=== PATIENT | male | born 1955 | race Caucasian/White ===

== ENCOUNTER 2021-09-14 21:17 | Emergency (ER) | payer OTHER ==
[~2021-09-14] VITALS: Ht 177.8 cm; Wt 83.9 kg
[~2021-09-14 21:17] MED LIST: AMLO10 PO; ASPI325 PO; CLOP75 PO; ISOMON30 PO; METO25 PO; PRAV20 PO
== END 2021-09-14 23:40 | disposition home or self-care (01) ==
LOC: ER 21:17
DX: U07.1 COVID-19 (principal)
CPT/HCPCS: J1885; J7030